=== PATIENT | female | born 1980 | race Caucasian/White ===

== ENCOUNTER 2018-08-18 19:12 | Emergency (ER) | payer BC ==
[2018-08-18] MEDS ORDERED: ACETAMINOPHEN 325 MG TABLET PO ONE (20:39)
[2018-08-18] MEDS ORDERED: DEXAMETHASONE SOD PHOS INJ 10 MG/1 ML VIAL IM ONE (20:39)
--- NOTE | 2018-08-18 20:44 | ER Document Report ---
ED Medical Screen (RME) - General Chief Complaint: Sore Throat Stated Complaint: SORE THROAT Time Seen by Provider: 08/18/18 20:38 Notes: 38F presents to the emergency department with swelling of her "thyroid". Seen at urgent care yesterday, had negative rapid strep, return today for blood work but arrived too late. Denies fevers or chills, denies dysphagia, able to control her secretions, complains of mild respiratory distress, complains of right ear pain. EXAM: Alert and oriented in no acute distress, lungs clear to auscultation in all paul, no stridor or wheezes, swelling of the anterior neck bilateral to the trachea I have greeted and performed a rapid initial assessment of this patient. A comprehensive ED assessment and evaluation of the patient, analysis of test results and completion of medical decision making process will be conducted by an additional ED providers. TRAVEL OUTSIDE OF THE [place] IN LAST 30 DAYS: No - Related Data Allergies/Adverse Reactions: amoxicillin Adverse Reaction (Verified 08/18/18 20:30) Past Medical History - Social History Chew tobacco use (# tins/day): No Frequency of alcohol use: Social Drug Abuse: None Renal/ Medical History: Denies: Hx Peritoneal Dialysis Past Surgical History: Reports: Hx Oral Surgery, Hx Orthopedic Surgery Physical Exam - Vital signs Vitals: Temp Pulse Resp BP Pulse Ox 97.9 F 78 16 135/96 H 98 08/18/18 19:21 08/18/18 19:21 08/18/18 19:21 08/18/18 19:21 08/18/18 19:21 Course - Vital Signs Vital signs: Temp Pulse Resp BP Pulse Ox 97.9 F 78 16 135/96 H 98 08/18/18 19:21 08/18/18 19:21 08/18/18 19:21 08/18/18 19:21 08/18/18 19:21
[2018-08-18 21:21] LABS: APPEARANCE,URINE CLEAR; BILIRUBIN,URINE NEGATIVE (NEGATIVE); COLOR,URINE STRAW; GLUCOSE, URINE NEGATIVE (NEGATIVE); KETONES,URINE NEGATIVE (NEGATIVE); LEUKOCYTE ESTERASE,URINE NEGATIVE (NEGATIVE); NITRITE,URINE NEGATIVE (NEGATIVE); PROTEIN,URINE NEGATIVE (NEGATIVE); URINE SPECIFIC GRAVITY 1.004; UROBILINOGEN,URINE NEGATIVE mg/dL (<2.0)
[2018-08-18 21:30] LABS: ABSOLUTE BASOPHILS # (AUTO) 0.1 10^3/uL (0.0-0.2); ABSOLUTE EOSINOPHILS # (AUTO) 0.1 10^3/uL (0.0-0.6); ABSOLUTE LYMPHOCYTES (AUTO) 3.6 10^3/uL (0.5-4.7); ABSOLUTE MONOCYTES (AUTO) 0.6 10^3/uL (0.1-1.4); ABSOLUTE NEUT (AUTO) 4.7 10^3/uL (1.7-8.2); BASOPHILS % (AUTO) 0.9 % (0-2); EOSINOPHILS % (AUTO) 0.9 % (0-6); HEMATOCRIT 44.3 % (36.0-47.0); HEMOGLOBIN 14.9 g/dL (12.0-15.5); LYMPHOCYTES % (AUTO) 39.7 % (13-45); MEAN CORPUSCULAR HEMOGLOBIN 31.3 pg (27.0-33.4); MEAN CORPUSCULAR HGB CONC 33.7 g/dL (32.0-36.0); MEAN CORPUSCULAR VOLUME 93 fl (80-97); MONOCYTES % (AUTO) 6.9 % (3-13); PLATELET COUNT 308 10^3/uL (150-450); RED BLOOD COUNT 4.78 10^6/uL (3.72-5.28); RED CELL DISTRIBUTION WIDTH 12.7 % (11.5-14.0); SEGMENTED NEUTROPHILS % (AUTO) 51.6 % (42-78); TOTAL CELLS COUNTED % (AUTO) 100 %; WHITE BLOOD COUNT 9.1 10^3/uL (4.0-10.5)
[2018-08-18 21:46] LABS: ALANINE AMINOTRANSFERASE 20 U/L (9-52); ALKALINE PHOSPHATASE 52 U/L (38-126); ANION GAP 13 (5-19); ASPARTATE AMINO TRANSFERASE 31 U/L (14-36); BILIRUBIN,DIRECT 0.2 mg/dL (0.0-0.4); BILIRUBIN,TOTAL 0.9 mg/dL (0.2-1.3); BLOOD UREA NITROGEN 6 mg/dL (7-20); CARBON DIOXIDE 28 mmol/L (22-30); CHLORIDE 99 mmol/L (98-107); GLUCOSE 83 mg/dL (75-110); SODIUM 139.7 mmol/L (137-145); TOTAL PROTEIN 8.3 g/dL (6.3-8.2)
--- NOTE | 2018-08-18 23:27 | RADIOLOGY REPORT (SQ) ---
EXAM DESCRIPTION: US HEAD NECK SOFT TISSUE COMPLETED DATE/TME: 08/18/2018 20:39 CLINICAL HISTORY: 38 years, Female, ?enlarged thyroid, acute COMPARISON: None. TECHNIQUE: Transverse and longitudinal sonographic images of the thyroid LIMITATIONS: None. FINDINGS: The right lobe measures 3.6 x 1.5 x 1.8 cm, the left lobe measures 3.7 x 1.1 x 1.4 cm. The isthmus measures 5.2 mm in AP diameter. There is a 2.5 x 1.1 x 2.2 cm hypo to isoechoic ovoid nodule associated with the isthmus. There are no associated calcifications. This extends slightly to the right of midline. IMPRESSION: Solid ovoid nodule within the isthmus, as described above. Given the size and solid appearance, consider further assessment with ultrasound-guided biopsy. . copyright 2010 [employer]- All Rights Reserved
--- NOTE | 2018-08-19 01:17 | ER Document Report ---
ED General - General Chief Complaint: Sore Throat Stated Complaint: SORE THROAT Time Seen by Provider: 08/18/18 20:38 Primary Care Provider: DANIELA ROSENBERG PA [Primary Care Provider] - Follow up as needed JOHN SALAS MD [ACTIVE STAFF] - Follow up in 3-5 days (for thyroid biopsy ) Notes: Patient is a 38-year-old female without chronic medical problems who presents due to concerns of increasing swelling in her throat over the past 2 to 3 weeks. Patient states that the area of swelling has progressively worsened since onset. States that she has a mild, aching, constant discomfort around the area that is worsened by swallowing. Not improved by anything. Denies any inability to swallow or difficulty breathing. She went to an urgent care yesterday, had a rapid strep done which was negative and was told to come back today for ultrasound and labs but was unable to get to the appointment in time. The pat ient states that she came to the emergency department because she was concerned about the swelling as well as her pain in her throat. Denies history of similar symptoms in the past. No recent weight loss. TRAVEL OUTSIDE OF THE [place] IN LAST 30 DAYS: No - Related Data Allergies/Adverse Reactions: amoxicillin Adverse Reaction (Verified 08/18/18 20:30) Past Medical History - General Information source: Patient - Social History Smoking Status: Never Smoker Chew tobacco use (# tins/day): No Frequency of alcohol use: Social Drug Abuse: None Family History: Reviewed & Not Pertinent Patient has suicidal ideation: No Patient has homicidal ideation: No Renal/ Medical History: Denies: Hx Peritoneal Dialysis Past Surgical History: Reports: Hx Oral Surgery, Hx Orthopedic Surgery Review of Systems - Review of Systems Notes: Constitutional: Negative for fever. HENT: Positive for throat discomfort and thyroid swelling Eyes: Negative for visual changes. Cardiovascular: Negative for chest pain. Respiratory: Negative for shortness of breath. Gastrointestinal: Negative for abdominal pain, vomiting or diarrhea. Genitourinary: Negative for dysuria. Musculoskeletal: Negative for back pain. Skin: Negative for rash. Neurological: Negative for headaches, weakness or numbness. 10 point ROS negative except as marked above and in HPI. Physical Exam - Vital signs Vitals: Temp Pulse Resp BP Pulse Ox 97.9 F 78 16 135/96 H 98 08/18/18 19:21 08/18/18 19:21 08/18/18 19:21 08/18/18 19:21 08/18/18 19:21 Interpretation: Hypertensive Notes: PHYSICAL EXAMINATION: GENERAL: Well-appearing, well-nourished and in no acute distress. HEAD: Atraumatic, normocephalic. EYES: Pupils equal round and reactive to light, extraocular movements intact, sclera anicteric, conjunctiva are normal. ENT: nares patent, oropharynx clear without exudates. moist mucous membranes. NECK: Normal range of motion, supple without lymphadenopathy, thyromegaly on palpation, no stridor LUNGS: Breath sounds clear to auscultation bilaterally and equal. No wheezes rales or rhonchi. HEART: Regular rate and rhythm without murmurs ABDOMEN: Soft, nontender, normoactive bowel sounds. No guarding, no rebound. No masses appreciated. EXTREMITIES: Normal range of motion, no pitting or edema. No cyanosis. NEUROLOGICAL: No focal neurological deficits. Moves all extremities spontaneously and on command. PSYCH: Moderately anxious SKIN: Warm, Dry, normal turgor, no rashes or lesions noted. Course - Re-evaluation Re-evalutation: 08/19/18 01:16 Patient presents with 2 weeks of progressively worsening pain and discomfort throat, some pain with swallowing although able to swallow and denies any difficulty breathing. Here patient has an obvious enlarged thyroid. Thyroid ultrasound shows multiple thyroid nodules. Labs otherwise unremarkable. Patient has no stridor, wheezing, no oropharyngeal edema. Able to speak without any difficulty. No evidence of critical airway occlusion. I have advised the patient of the findings of her ultrasound and the need for outpatient follow-up for biopsy. At this time will discharge with return precautions and follow-up r ecommendations. Verbal discharge instructions given a the bedside and opportunity for questions given. Medication warnings reviewed. Patient is in agreement with this plan and has verbalized understanding of return precautions and the need for primary care follow-up in the next 24-72 hours. - Vital Signs Vital signs: Temp Pulse Resp BP Pulse Ox 97.7 F 92 16 117/79 97 08/19/18 01:21 08/19/18 01:21 08/18/18 19:21 08/19/18 01:21 08/19/18 01:21 - Laboratory Result Diagrams: 08/18/18 21:00 08/18/18 21:00 Laboratory results interpreted by me: 08/18/18 21:00 BUN 6 L Total Protein 8.3 H - Diagnostic Test Radiology reviewed: Reports reviewed Discharge - Discharge Clinical Impression: Thyroid nodule, Throat discomfort Condition: Good Disposition: HOME, SELF-CARE Additional Instructions: Please follow-up with your primary care doctor as you will need a biopsy of your thyroid. Return if you develop difficulty breathing, increased difficult he swallowing, increasing pain, fever greater than 100.4 F, pass out, or have any other symptoms that are worrisome to you. Referrals: DANIELA ROSENBERG PA [Primary Care Provider] - Follow up as needed JOHN SALAS MD [ACTIVE STAFF] - Follow up in 3-5 days (for thyroid biopsy )
[2018-08-19 01:26] VITALS: BP 117/79
== END 2018-08-19 01:26 | disposition home or self-care (01) ==
LOC: ER 19:12
DX: E04.1 Nontoxic single thyroid nodule (principal); R07.0 Pain in throat; Z88.0 Allergy status to penicillin
CPT/HCPCS: 99283; 96372; 36415; 84443; 85025; 81025; 80053; 81001; 76536; J1100